=== PATIENT | male | born 1960 | race African-American/Black ===

== ENCOUNTER 2019-01-19 09:58 | Emergency (ER) | payer MEDICAID ==
[~2019-01-19] VITALS: Ht 175.3 cm; Wt 48.5 kg
[~2019-01-19 09:58] MED LIST: AUGMENTIN 875-1 EAC1 ORAL
[2019-01-19 10:41] VITALS: BP 117/70
[2019-01-19 10:57] VITALS: BP 123/82
--- NOTE | 2019-01-19 15:31 | Emergency Room Report ---
History of Present Illness General Chief Complaint: General Complaint Source: Patient Present Illness HPI 58-year-old male who presents with lump in left lower abdomen. Patient reported he started seeing symptoms about 1 week ago. He notes that when he pushes on it goes down. Patient has no abdominal pain, no testicular pain, no penile pain. Patient has no history of prior abdominal surgeries. Allergies: Coded Allergies: No Known Allergies (Unverified , 07/06/14) verified Nursing Documentation-[facility] Past Medical History: No Stated History Review of Systems All Other Systems: negative except mentioned in HPI Physical Exam Vital Signs Date Time Temp Pulse Resp B/P (MAP) Pulse Ox O2 Delivery O2 Flow Rate FiO2 01/19/19 10:17 97.9 78 18 131/93 (106) 95 Room Air Sp02 EP Interpretation: reviewed, normal General Appearance: no apparent distress, alert, GCS 15, non-toxic Head: normocephalic, atraumatic Eyes: bilateral eye normal inspection, bilateral eye PERRL ENT: hearing grossly normal, normal pharynx, no angioedema, normal voice Neck: full range of motion, supple/symm/no masses Respiratory: chest non-tender, lungs clear, normal breath sounds, speaking full sentences Cardiovascular #1: regular rate, rhythm, no edema Cardiovascular #2: 2+ carotid (R), 2+ carotid (L), 2+ radial (R), 2+ radial (L) , 2+ dorsalis pedis (R), 2+ dorsalis pedis (L) Gastrointestinal: normal bowel sounds, non tender, soft, non-distended, no guarding, no rebound, hernia - 2 cm hernia in left inguinal region reducible, no overlying skin changes, no tenderness to palpation, increases in size with coughing. Rectal: deferred Genitourinary: normal inspection, no CVA tenderness Musculoskeletal: back normal, gait/station normal, normal range of motion, non- tender Neurologic: alert, oriented x3, responsive, motor strength/tone normal, sensory intact, speech normal Psychiatric: judgement/insight normal, memory normal, mood/affect normal, no suicidal/homicidal ideation Lymphatic: no adenopathy Medical Decision Making Diagnostic Impression: Primary Impression: Inguinal hernia ER Course A 58-year-old male with inguinal hernia, reducible, with no overlying skin changes, or signs of strangulation. Patient discharged with follow-up at primary care doctor or surgeon for further evaluation and repair as needed. Patient stable for discharge at this time given no signs of strangulation or incarceration of hernia. Patient given warning signs of the symptoms such as skin changes, irreducible hernia, or any lower abdominal pain surrounding area or referral of abdominal pain pain. Patient shows understanding of instructions. Last Vital Signs Date Time Temp Pulse Resp B/P (MAP) Pulse Ox O2 Delivery O2 Flow Rate FiO2 01/19/19 10:57 97.8 74 18 123/82 97 Room Air Disposition: HOME, SELF-CARE Condition: Stable Referrals: NOT CHOSEN IPA/MD,REFERRING (PCP) [facility] Patient Instructions: Inguinal Hernia, Adult Additional Instructions: Follow-up with your primary care doctor to be referred to a surgeon for hernia repair. If hernia, bulge in abdomen returns, and does not reduce/go down on its own, come to emergency room IMMEDIATELY James Langston M.D. Jan 19, 2019 15:31
== END 2019-01-19 11:02 | disposition home or self-care (01) ==
LOC: EMR 10:54
DX: K40.90 Unilateral inguinal hernia, without obstruction or gangrene, not specified as recurrent (principal)
CPT/HCPCS: 99282

== ENCOUNTER 2019-07-12 13:01 | Emergency (ER) | payer MEDICAID ==
[~2019-07-12] VITALS: Ht 172.7 cm; Wt 74.8 kg
--- NOTE | 2019-07-12 13:36 | Emergency Room Report ---
History of Present Illness General Chief Complaint: Upper Extremity Injury Source: Patient Present Illness HPI 59-year-old male with no significant past medical history here complaining of pain and swelling right forearm reports that does not know whether he hit it. Appears to be very swollen and warm to touch. Has full range of motion. Denies any tingling numbness or muscle tightness. Denies chest pain, shortness of breath, palpitation, headache, dizziness, nausea vomiting. Has not taken medication for symptom relief. Appears to be afebrile Allergies: Coded Allergies: No Known Allergies (Unverified , 07/06/14) verified COVID-19 Screening Contact w/high risk pt: No Recent Travel to affected area: No Experienced COVID-19 symptoms?: No Patient History Past Surgical History: none Pertinent Family History: none Immunizations: UTD Reviewed Nursing Documentation: PMH: Agreed; PSxH: Agreed Nursing Documentation-PMH Past Medical History: No History, Except For Hx Hypertension: Yes Hx Asthma: Yes Hx COPD: Yes Review of Systems All Other Systems: negative except mentioned in HPI Physical Exam Vital Signs Date Time Temp Pulse Resp B/P (MAP) Pulse Ox O2 Delivery O2 Flow Rate FiO2 07/12/19 13:05 98.8 103 20 107/77 (87) 95 Room Air Sp02 EP Interpretation: reviewed, normal General Appearance: no apparent distress, alert, GCS 15, non-toxic Head: normocephalic, atraumatic Eyes: bilateral eye normal inspection, bilateral eye PERRL ENT: hearing grossly normal, normal pharynx, no angioedema, normal voice Neck: full range of motion, supple/symm/no masses Respiratory: chest non-tender, lungs clear, normal breath sounds, no rhonchi, no retraction, speaking full sentences Cardiovascular #1: regular rate, rhythm, no edema, no murmur Cardiovascular #2: 2+ radial (R), 2+ radial (L) Gastrointestinal: normal bowel sounds, non tender, soft, non-distended, no guarding, no rebound Rectal: deferred Musculoskeletal: back normal, other - Cellulitis of right forearm secondary to an insect bite Neurologic: alert, motor strength/tone normal, oriented x3, sensory intact, responsive, speech normal Psychiatric: judgement/insight normal, memory normal, mood/affect normal, no suicidal/homicidal ideation Skin: other - Insect bite noted on right forearm with cellulitis Lymphatic: no adenopathy Medical Decision Making PA Attestation All my diagnosis and treatment plans were reviewed ad discussed with my supervising physician Dr. Aguirre Diagnostic Impression: Primary Impression: Cellulitis of right forearm ER Course 59-year-old male with no significant past medical history here complaining of pain and swelling right forearm reports that does not know whether he hit it. Appears to be very swollen and warm to touch. Has full range of motion. Denies any tingling numbness or muscle tightness. Denies chest pain, shortness of breath, palpitation, headache, dizziness, nausea vomiting. Has not taken medication for symptom relief. Appears to be afebrile Ddx considered but are not limited to : Cellulitis,, superficial infection, abscess Vital signs: are WNL, pt. is afebrile H&PE are most consistent with: Cellulitis of right forearm secondary to insect bite ORDERS: X-ray right forearm, x-ray right elbow, Keflex, prednisone, ibuprofen ED INTERVENTIONS: None required at this time. DISCHARGE: At this time pt. is stable for d/c to home. Will provide printed patient care instructions, and any necessary prescriptions. Care plan and follow up instructions have been discussed with the patient prior to discharge. Take medication as directed, follow primary doctor, if worsening symptoms return to the emergency room Other X-Ray Diagnostic Results Other X-Ray Diagnostic Results #1: X-Ray ordered: Right forearm # of Views/Limited Vs Complete: 2 View Indication: Swelling EP Interpretation: Yes PA Xray: Interpretation reviewed, by supervising MD, and agrees with findings. Interpretation: no dislocation, no soft tissue swelling, no fractures Impression: No acute disease Electronically Signed by: Karol Delgadillo PA-C Other X-Ray Diagnostic Results #2: X-Ray ordered: Right elbow # of Views/Limited Vs Complete: 2 View Indication: Swelling EP Interpretation: Yes PA Xray: Interpretation reviewed, by supervising MD, and agrees with findings. Interpretation: no dislocation, no soft tissue swelling, no fractures Impression: No acute disease Electronically Signed by: Karol Delgadillo PA-C Last Vital Signs Date Time Temp Pulse Resp B/P (MAP) Pulse Ox O2 Delivery O2 Flow Rate FiO2 07/12/19 13:05 98.8 103 20 107/77 (87) 95 Room Air Disposition: HOME, SELF-CARE Condition: Stable Scripts Prednisone* (PREDNISONE*) 20 Mg Tablet 40 MG ORAL DAILY for 5 Days, #10 TAB Prov: Karol Fernandez 07/12/19 Ibuprofen (Ibu) 800 Mg Tablet 800 MG PO TID, #30 TAB Prov: Karol Fernandez 07/12/19 Cephalexin* (KEFLEX*) 500 Mg Capsule 500 MG ORAL EVERY 6 HOURS for 7 Days, #28 CAP Prov: Karol Fernandez 07/12/19 Referrals: NOT CHOSEN IPA/MD,REFERRING (PCP) Patient Instructions: Cellulitis, [id number] Additional Instructions: Take medication as directed, follow with primary doctor, increase oral hydration , if worsening symptoms return to the emergency room Karol Fernandez July 12, 2019 13:36
[2019-07-12] MEDS ORDERED: PREDNISONE20 MG ORAL (13:37)
[2019-07-12] MEDS ORDERED: CEPHALEXIN500 MG ORAL (13:37)
[2019-07-12] MEDS ORDERED: IBU800 MG PO (13:37)
--- NOTE | 2019-07-12 13:45 | NUR ---
ER DISCHARGE NOTE: Patient is cleared to be discharged per ERMD, pt is aox4, on room air, with stable vital signs. pt was given dc and prescription instructions, pt was able to verbalize understanding, pt is able to ambulate with steady gait. pt took all belongings.
[2019-07-12 14:41] VITALS: BP 107/77
--- NOTE | 2019-07-12 15:49 | Diagnostic Imaging Report ---
Indications:Trauma, pain Technique: 2 views of the right elbow Comparison: None Findings: Lateral view is not a true lateral view, precluding exclusion of an effusion. No definite acute fractures. No dislocations. The joint spaces are preserved. Impression: Somewhat limited exam. No definite acute bony trauma
--- NOTE | 2019-07-12 15:50 | Diagnostic Imaging Report ---
Indications: Pain, trauma Technique: Two views of the right forearm Comparison: None Findings: No acute fractures. No dislocations. The joint spaces are preserved. No radiopaque foreign body. There is some soft tissue swelling proximally Impression: Negative
== END 2019-07-12 13:50 | disposition home or self-care (01) ==
LOC: EMR 13:29
DX: L03.113 Cellulitis of right upper limb (principal); S50.861A Insect bite (nonvenomous) of right forearm, initial encounter; W57.XXXA Bitten or stung by nonvenomous insect and other nonvenomous arthropods, initial encounter; Y92.9 Unspecified place or not applicable; J44.9 Chronic obstructive pulmonary disease, unspecified; I10 Essential (primary) hypertension
CPT/HCPCS: 73070; 73090; Z7502; 99284

== ENCOUNTER 2019-11-02 01:40 | Emergency (ER) | payer MEDICAID ==
[~2019-11-02] VITALS: Ht 175.3 cm; Wt 74.8 kg
[~2019-11-02 01:40] MED LIST changes: +CEPHALEXIN500 MG ORAL; +IBU800 MG PO; +PREDNISONE20 MG ORAL
[2019-11-02] MEDS ORDERED: HYDROCHLOROTH12.5 MG ORAL (01:59)
[2019-11-02] MEDS ORDERED: ALBUTEROL SULF8.5 G1 INH (01:59)
[2019-11-02] MEDS ORDERED: ASPIRIN81 MG ORAL (01:59)
[2019-11-02 02:00] VITALS: BP 125/85
[2019-11-02 02:15] VITALS: BP 118/80
[2019-11-02] MEDS ORDERED: Neosporin Oint Ud Pkt TOPIC ONE (02:15)
[2019-11-02] MEDS ORDERED: Clindamycin 150mg cap ORAL ONE (02:15)
[2019-11-02] MEDS ORDERED: CLINDAMYCIN HC300 MG ORAL (02:20)
--- NOTE | 2019-11-02 02:20 | Emergency Room Report ---
History of Present Illness General Chief Complaint: Edema Source: Patient Present Illness [facility] This is a 59-year-old male who is right-hand dominant. He presents with chief complaint of right finger pain and redness. Onset for last couple days. Is localized to his right ring finger. He said there was a blister there and he popped it. He said he got this after working on the yard. Denies any trauma. He did not feel anything bite him. No fever chills but no nausea no vomiting. Denies any other complaint. Minimal pain. Allergies: Coded Allergies: No Known Allergies (Unverified , 07/06/14) verified COVID-19 Screening Contact w/high risk pt: No Recent Travel to affected area: No Experienced COVID-19 symptoms?: No COVID-19 Testing performed BUFFET WAITER/WAITRESS: No Patient History Past Medical History: see triage record, old chart reviewed Past Surgical History: none Pertinent Family History: none Social History: Denies: smoking Immunizations: other Reviewed Nursing Documentation: PMH: Agreed; PSxH: Agreed Nursing Documentation-PMH Past Medical History: No History, Except For Hx Hypertension: Yes Hx Asthma: Yes Hx COPD: Yes Review of Systems Eye: Denies: eye pain, blurred vision ENT: Denies: ear pain, nose congestion, throat swelling Respiratory: Denies: cough, shortness of breath Cardiovascular: Denies: chest pain, palpitations Gastrointestinal: Denies: abdominal pain, diarrhea, nausea, vomiting Musculoskeletal: Reports: muscle pain; Denies: back pain, joint pain Skin: Denies: rash Neurological: Denies: headache, numbness Endocrine: Denies: increased thirst, increased urine Hematologic/Lymphatic: Denies: easy bruising All Other Systems: negative except mentioned in HPI Physical Exam Vital Signs Date Time Temp Pulse Resp B/P (MAP) Pulse Ox O2 Delivery O2 Flow Rate FiO2 11/02/19 01:53 98.2 106 15 125/85 (98) 96 Room Air Vitals normal Sp02 EP Interpretation: reviewed, normal General Appearance: well appearing, no apparent distress, alert Head: normocephalic, atraumatic Eyes: bilateral eye PERRL, bilateral eye EOMI ENT: hearing grossly normal, normal pharynx Neck: full range of motion, supple, no meningismus Respiratory: chest non-tender, lungs clear, normal breath sounds Cardiovascular #1: regular rate, rhythm, no murmur Gastrointestinal: normal bowel sounds, non tender, no mass, no organomegaly, no bruit, non-distended Musculoskeletal: back normal, normal range of motion, gait/station normal, other - Right ring finger: There is erythema and mild edema to the proximal phalanx dorsally. There is a small central ulcerated area. There is no purulent discharge. Full range of motion MCP and PIP and DIP joint. Sensation normal. Psychiatric: mood/affect normal Medical Decision Making Diagnostic Impression: Primary Impression: Cellulitis of finger of right hand ER Course This patient presents with cellulitis of his right ring finger. No evidence of abscess. No evidence of tenosynovitis. Will discharge home. Last Vital Signs Date Time Temp Pulse Resp B/P (MAP) Pulse Ox O2 Delivery O2 Flow Rate FiO2 11/02/19 01:53 98.2 106 15 125/85 (98) 96 Room Air Status: improved Disposition: HOME, SELF-CARE Condition: Stable Scripts Clindamycin Hcl (CLINDAMYCIN HCL) 300 Mg Capsule 300 MG ORAL THREE TIMES A DAY, #21 CAP Prov: Fortino Gil MD 11/02/19 Referrals: NOT CHOSEN IPA/,REFERRING (PCP) Additional Instructions: Keep wound clean. Clean first with hydrogen peroxide and apply antibiotic ointment. Keep it covered. Follow-up with your doctor in 7 days for recheck. Return if worse. Fortino Gil MD Nov 02, 2019 02:20
== END 2019-11-02 02:15 | disposition home or self-care (01) ==
LOC: EMR 02:13
DX: L03.011 Cellulitis of right finger (principal); I10 Essential (primary) hypertension; J44.9 Chronic obstructive pulmonary disease, unspecified
CPT/HCPCS: 99282